=== PATIENT | female | born 1990 | race African-American/Black ===

== ENCOUNTER 2022-03-29 10:14 | Day surgery (SDC) | payer OTHER ==
[2022-03-28 09:49] VITALS: BMI 22.8
[2022-03-29] MEDS ORDERED: Lidocaine 1% (PF) 30 ML VIAL ONE (10:21)
[2022-03-29] MEDS ORDERED: EPINEPHrine 1 MG/ML AMP ONE (10:21)
[2022-03-29] MEDS ORDERED: fentaNYL PF 100 MCG/2 ML SYRINGE ONE (10:40)
[2022-03-29] MEDS ORDERED: Ondansetron PF 4 MG/2 ML Vial ONE (10:58)
[2022-03-29] MEDS ORDERED: PROPOFOL 200 MG/20 ML VIAL ONE (10:58)
[2022-03-29] MEDS ORDERED: Glycopyrrolate 0.2 MG/ML 5 ML SYRINGE ONE (10:58)
[2022-03-29] MEDS ORDERED: Lidocaine 1% PF 5 ML VIAL ONE (10:58)
[2022-03-29] MEDS ORDERED: Dexamethasone 20 MG/5 ML VIAL ONE (10:58)
[2022-03-29 11:06] LABS: BHCG - Serum Negative (NEGATIVE); Pregs Control Background? CLEAR/WHITE (CLR/WHITE); Pregs Control Bar Appear? YES (CONTROL BAR)
== END 2022-03-29 13:05 | disposition home or self-care (01) ==
LOC: SDC 10:14
PROVIDERS: ATTEND Otolaryngology Plastic Surgery within the Head & Neck
PROC: 0JB50ZZ Excision of Left Neck Subcutaneous Tissue and Fascia, Open Approach (ICD-10-PCS; principal; 2022-03-29)
DX: Q18.1 Preauricular sinus and cyst (principal); Z86.16 Personal history of COVID-19; Z88.2 Allergy status to sulfonamides
CPT/HCPCS: 84703; 85014; 88305; J0171; J1100; J2001; J2405; J2704